=== PATIENT | male | born 1985 | race Caucasian/White ===

== ENCOUNTER 2017-02-26 19:22 | Emergency (ER) | payer OTHER ==
[~2017-02-26] VITALS: Ht 190.5 cm; Wt 80.7 kg
[2017-02-26] MEDS ORDERED: NKM (19:36)
[2017-02-26] MEDS ORDERED: Penicillin Vk 250mg tab ORAL ONE (20:15)
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
[2017-02-26] MEDS ORDERED: TYLENOL EXTRA500 MG ORAL (20:59)
[2017-02-26] MEDS ORDERED: PENICILLIN V P500 MG PO (20:59)
[2017-02-26] MEDS ORDERED: VIBRAMYCIN100 MG ORAL (20:59)
[2017-02-26] MEDS ORDERED: BACITRACIN-P28.35 GM TP (20:59)
[2017-02-26 22:30] VITALS: BP 128/88
[2017-02-27 02:29] VITALS: BP 120/78
--- NOTE | 2017-02-27 10:54 | Diagnostic Imaging Report ---
Indication: pain Findings: 3 views of the right hand were obtained. Normal bony mineralization and alignment are demonstrated. No acute fractures, erosions, or periosteal reaction are seen. Old ununited ulnar styloid fracture noted. Narrowing of the radiocarpal joint noted. Soft tissues are unremarkable. Impression: No acute findings. Osteoarthrosis of the wrist
== END 2017-02-26 22:45 | disposition home or self-care (01) ==
LOC: EMR 19:59
DX: S61.230A Puncture wound without foreign body of right index finger without damage to nail, initial encounter (principal); L03.011 Cellulitis of right finger; W25.XXXA Contact with sharp glass, initial encounter; Y92.59 Other trade areas as the place of occurrence of the external cause; Y99.0 Civilian activity done for income or pay; Z88.6 Allergy status to analgesic agent
CPT/HCPCS: 29130; 99284; C9399